=== PATIENT | female | born 1930 ===

== ENCOUNTER → 2018-06-22 10:17 | Outpatient (CLI) | payer OTHER | END | disposition home or self-care (01) | LOC: RAD 10:17 → LAB 10:17 | DX: D64.89 Other specified anemias (principal); E88.89 Other specified metabolic disorders; D68.8 Other specified coagulation defects; N39.0 Urinary tract infection, site not specified; A49.02 Methicillin resistant Staphylococcus aureus infection, unspecified site; R82.79 Other abnormal findings on microbiological examination of urine; I49.8 Other specified cardiac arrhythmias ==

== ENCOUNTER 2018-06-27 14:10 | Outpatient (CLI) | payer OTHER | END 2018-06-27 14:17 | disposition home or self-care (01) | LOC: MRI 14:10 | DX: M75.121 Complete rotator cuff tear or rupture of right shoulder, not specified as traumatic (principal); M19.011 Primary osteoarthritis, right shoulder | CPT/HCPCS: 73221 ==

== ENCOUNTER → 2018-07-06 09:09 | Outpatient (CLI) | payer OTHER | END | disposition home or self-care (01) | LOC: LAB 09:09 | DX: A49.02 Methicillin resistant Staphylococcus aureus infection, unspecified site (principal) ==

== ENCOUNTER 2018-07-18 06:22 | Day surgery (SDC) | payer OTHER | END 2018-07-18 12:52 | disposition home or self-care (01) | LOC: CIR.AMB 06:22 | DX: M75.121 Complete rotator cuff tear or rupture of right shoulder, not specified as traumatic (principal); M19.011 Primary osteoarthritis, right shoulder; M25.311 Other instability, right shoulder; M13.811 Other specified arthritis, right shoulder; M75.21 Bicipital tendinitis, right shoulder ==

== ENCOUNTER 2018-08-31 10:10 | Outpatient (CLI) | payer OTHER | END 2018-08-31 10:18 | disposition home or self-care (01) | LOC: LAB 10:10 | DX: E55.9 Vitamin D deficiency, unspecified (principal); M85.9 Disorder of bone density and structure, unspecified; E21.2 Other hyperparathyroidism; E88.89 Other specified metabolic disorders; M81.8 Other osteoporosis without current pathological fracture; E83.42 Hypomagnesemia; E56.1 Deficiency of vitamin K ==